=== PATIENT | female | born 1960 | race Caucasian/White ===

== ENCOUNTER → 2024-10-04 12:01 | Outpatient (BNVA) | payer BC, SELFPAY | PROVIDERS: Family Provider Family Medicine; PCP Family Medicine; Visit Provider Family Medicine | DX: Z00.00 Encounter for general adult medical examination without abnormal findings (principal); E03.8 Other specified hypothyroidism; E78.2 Mixed hyperlipidemia; I25.2 Old myocardial infarction; I10 Essential (primary) hypertension; Z12.4 Encounter for screening for malignant neoplasm of cervix | CPT/HCPCS: 80053; 80061; 84443; 85025; 87624 ==